=== PATIENT | male | born 1965 | race African-American/Black ===

== ENCOUNTER 2018-06-05 17:36 | Emergency (ER) | payer MEDICAID ==
[~2018-06-05 17:36] MED LIST: ACET-2031 PO; AMO500 PO; ASP325 PO; AZIT-1 PO; BACDS PO; CALC-488 PO; CEPH-13 PO; CIP500 PO; CLA500 PO; CYC10 PO; CYCL-343 PO; CYCL10TA29 PO; DIA5 PO; DOC100 PO; DON PO; HYDR-2966 PO; HYDR-3072 PO; HYDR-3503 PO; HYDR-4305 PO; HYDR-4309 PO; IBUP-1618 PO; KET10 PO; LEVO-85 PO; LISI-362 PO; LOR5 PO; LOR5/325 PO; MAG-66 PO; METH4TAB66 PO; METR-1 PO; NIC21T TD; OMEP-153 PO; OXYB-13 PO; OXYC-689 PO; OXYC-865 PO; PAN40 PO; PER PO; PRED-1 PO; PRED20TA6 PO; SERT-1 PO; SERT-173 PO; SUC1 PO; SULF-198 PO; TETR-30 PO; TRA50 PO; TRAM-420 PO; TRAZ-133 PO; TRAZADONE; ZOLOFT; [UNRECOGNIZED DRUG - CODE] PO; [UNRECOGNIZED DRUG - REMARK]
[2018-06-05] MEDS ORDERED: fentaNYL CITR 100 MCG/2 ML AMP IVP ONE ×2 (18:05→19:35)
[2018-06-05 18:17] LABS: PLATELET COUNT, AUTOMATED 338 K/uL (150-450)
--- NOTE | 2018-06-05 18:29 | ER Report ---
History and Physical Time Seen By MD: 17:55 Hx. of Stated Complaint: FULL ABD PAIN THAT RADIATES TO MY BACK HPI/ROS Source of History: The Patient Chief Concern: abdominal pain History of Present Illnesses: 53-year-old male presents to the Emergency Department with complaints of abdominal pain that radiates into his back on both sides. The pain started Monday and is currently rated a 10 out of 10 on pain scale. States, "it is like someone kicked you in the testicles but the pain doesn't go away." Associated symptoms of chills and nausea that also started Monday. Reports being sexually active and using condoms 100% of the time. Pain worse with deep inhalation, sitting or standing. Denies treatments tried. ROS: Constitutional: Denies recent illness, reports chills. HEENT: Denies headache. No sore throat. Cardiovascular: Denies chest pain, palpitations, or diaphoresis. Respiratory: Denies shortness of breath, denies cough or wheezing. Gastrointestinal System: Reports nausea, denies vomiting, denies diarrhea or constipation, denies hematochezia, generalized abdominal pain. Genitourinary: Reports lower back pain, denies hematuria, denies painful voiding. Musculoskeletal: Denies muscular pain, no joint pain. Allergies: Coded Allergies: morphine (Verified Allergy, Intermediate, ITCHING, 06/27/16) Home Meds Active Scripts Hydrocodone Bit/Acetaminophen (HYDROCODON-ACETAMINOPHEN 5-325) 1 Each Tablet, 1 EACH PO Q6 Y for PAIN for 3 Days, #12 TAB Prov:MELVI LÓPEZ RETAIL SHIFT SUPERVISOR 06/05/18 Dicyclomine Hcl (BENTYL) 10 Mg/1 Ml Ampul, 20 MG IM QID for 7 Days, #28 TAB Prov:MELVI LÓPEZ RETAIL SHIFT SUPERVISOR 06/05/18 Oxycodone Hcl/Acetaminophen (PERCOCET 5-325 MG TABLET) 1 Each Tablet, 1 EACH PO Q4H Y for PAIN, #12 Prov:ZACHARY GREGORY DO 03/20/17 Levofloxacin 500 Mg Tab (LEVAQUIN 500 MG TAB) 500 Mg Tablet, 500 MG PO DAILY for infection, #6 TAB Prov:ZACHARY GREGORY DO 03/20/17 Oxycodone/Acetaminophen (OXYCODONE/ACETAMINOPHEN 5MG/325 MG) 5 Mg/325 Mg Tab, 1- 2 TAB PO Q6H, #14 TAB Prov:WENDY ARREDONDO [employer]O PARTS SALESPERSON 06/27/16 Cephalexin (KEFLEX) 500 Mg Capsule, 500 MG PO TID, #30 CAP TAKE ONE CAPSULE BY MOUTH EVERY 3 TIMES A DAY. Prov:WENDY ARREDONDO [employer] SALESPERSON 06/27/16 Sulfamethoxazole/Trimet 800-160 Mg Tab (BACTRIM DS TABLET) 1 Each Tablet, 2 TAB PO Q12H, #40 TAB Prov:WENDY ARREDONDO [employer] SALESPERSON 06/27/16 Past Medical/Surgical History MS diagnosed 5 years ago Hx Smoking: Yes (1/2 PPD) Smoking Status: Current: Every Day Smoker Exposure to Second Hand Smoke?: Yes Hx Substance Use Disorder: No Hx Alcohol Use: No Constitutional Vital Sign - Last 24 Hours 06/05/18 06/05/18 06/05/18 06/05/18 17:41 17:42 17:51 18:06 Temp 98.6 Pulse 100 96 95 Resp 18 B/P (MAP) 149/114 (126) 149/114 Pulse Ox 95 96 91 O2 Delivery Room Air 06/05/18 06/05/18 06/05/18 06/05/18 18:21 18:36 18:41 19:20 Pulse 101 91 89 95 Resp 24 B/P (MAP) 158/100 (119) Pulse Ox 90 88 89 96 06/05/18 06/05/18 06/05/18 06/05/18 19:30 19:34 19:41 20:00 Pulse 89 83 Resp 22 18 B/P (MAP) 174/124 (141) 152/97 (115) Pulse Ox 97 98 O2 Delivery Nasal Cannula Nasal Cannula O2 Flow Rate 2.0 2 2 06/05/18 06/05/18 06/05/18 06/05/18 20:05 20:20 20:30 20:35 Pulse 89 87 88 B/P (MAP) 160/93 (115) Pulse Ox 97 98 100 O2 Delivery Room Air Room Air Room Air 06/05/18 06/05/18 06/05/18 06/05/18 20:50 21:00 21:05 21:20 Pulse 90 85 82 B/P (MAP) 154/98 (116) Pulse Ox 99 99 99 O2 Delivery Room Air Room Air Room Air 06/05/18 06/05/18 21:30 21:35 Pulse 80 B/P (MAP) 141/98 (112) Pulse Ox 99 O2 Delivery Room Air Intake and Output 06/05/18 06/05/18 06/06/18 15:00 23:00 07:00 Intake Total 1000 ml Output Total 400 ml Balance 600 ml Physical Exam Constitutional: 53-year-old male in moderate distress. HEENT: Normocephalic and atraumatic. Non-injected. No exudates. PERRLA. Lymph nodes- cervical chain, pre-and post-auricular, occipital, mandibular, and submental lymph nodes non-tender and non-palpable. Cardiovascular: 2+ radial pulses BL equal. PMI - left midclavicular at the 5th ICS. Aortic, pulmonic, tricuspid, and mitral areas - clear S1/S2; no murmur, no S3, or S4. Respiratory: Respiratory Excursion BL equal and symmetrical; no presence of lag ; quiet, rhythmic and effortless. No retractions. BL clear and equal. GI: nondistended, normoactive BS, guarding, tender, CVA tenderness bilaterally : testicles without swelling or pain on palpation Musculoskeletal: moves all extremities Differential Diagnoses: kidney stone, UTI, STI, pyelonephritis, pancreatitis Medical Decision Making Data Points Result Diagram: 06/05/18 1745 06/05/18 1745 Laboratory Hematology Test 06/05/18 17:45 06/05/18 20:54 Red Blood Count 4.89 M/uL (4.00-5.60) Mean Corpuscular Volume 96.6 fL (80.0-96.0) Mean Corpuscular Hemoglobin 33.8 pg (26.0-33.0) Mean Corpuscular Hemoglobin Concent 35.0 g/dL (32.0-36.0) Red Cell Distribution Width 13.5 % (11.5-14.5) Mean Platelet Volume 7.8 fL (7.2-11.1) Neutrophils (%) (Auto) 53.6 % (39.4-72.5) Lymphocytes (%) (Auto) 35.3 % (17.6-49.6) Monocytes (%) (Auto) 7.8 % (4.1-12.4) Eosinophils (%) (Auto) 1.4 % (0.4-6.7) Basophils (%) (Auto) 1.9 % (0.3-1.4) Nucleated RBC Relative Count (auto) 0.1 /100WBC Neutrophils # (Auto) 3.7 K/uL (2.0-7.4) Lymphocytes # (Auto) 2.4 K/uL (1.3-3.6) Monocytes # (Auto) 0.5 K/uL (0.3-1.0) Eosinophils # (Auto) 0.1 K/uL (0.0-0.5) Basophils # (Auto) 0.1 K/uL (0.0-0.1) Nucleated RBC Absolute Count (auto) 0.01 K/uL Sodium Level 140 mmol/L (137-145) Potassium Level 3.3 mmol/L (3.5-5.0) Chloride Level 103 mmol/L (98-107) Carbon Dioxide Level 26 mmol/L (22-30) Blood Urea Nitrogen 12 mg/dl (9-21) Creatinine 1.00 mg/dl (0.66-1.25) Glomerular Filtration Rate Calc > 60.0 Random Glucose 119 mg/dl (75-110) Calcium Level 8.8 mg/dl (8.4-10.2) Total Bilirubin 0.5 mg/dl (0.2-1.3) Aspartate Amino Transf (AST/SGOT) 28 U/L (0-35) Alanine Aminotransferase (ALT/SGPT) 16 U/L (0-56) Alkaline Phosphatase 116 U/L (0-126) Total Protein 7.3 g/dl (6.3-8.2) Albumin 4.3 g/dl (3.5-5.0) Urine Color Yellow Urine Clarity Clear Urine pH 5.0 pH (4.8-9.5) Urine Specific [place] 1.054 Urine Protein Negative mg/dL (NEGATIVE) Urine Glucose (UA) Negative mg/dL (NEGATIVE) Urine Ketones Negative mg/dL (NEGATIVE) Urine Blood Negative (NEGATIVE) Urine Nitrite Negative (NEGATIVE) Urine Bilirubin Negative (NEGATIVE) Urine Urobilinogen 4.0 mg/dL (0.2-1.9) Urine Leukocyte Esterase Negative (NEGATIVE) Urine RBC 1 /HPF (0-2/HPF) Urine WBC 1 /HPF (0-5/HPF) Urine Squamous Epithelial Cells Moderate /LPF (</=FEW) Urine Bacteria Negative /HPF (NONE-FEW) Urine Mucus Few /HPF (NONE-FEW) Chemistry Test 06/05/18 17:45 06/05/18 20:54 White Blood Count 6.9 k/uL (4.5-11.0) Red Blood Count 4.89 M/uL (4.00-5.60) Hemoglobin 16.5 g/dL (14.0-18.0) Hematocrit 47.2 % (42.0-52.0) Mean Corpuscular Volume 96.6 fL (80.0-96.0) Mean Corpuscular Hemoglobin 33.8 pg (26.0-33.0) Mean Corpuscular Hemoglobin Concent 35.0 g/dL (32.0-36.0) Red Cell Distribution Width 13.5 % (11.5-14.5) Platelet Count 338 K/uL (150-450) Mean Platelet Volume 7.8 fL (7.2-11.1) Neutrophils (%) (Auto) 53.6 % (39.4-72.5) Lymphocytes (%) (Auto) 35.3 % (17.6-49.6) Monocytes (%) (Auto) 7.8 % (4.1-12.4) Eosinophils (%) (Auto) 1.4 % (0.4-6.7) Basophils (%) (Auto) 1.9 % (0.3-1.4) Nucleated RBC Relative Count (auto) 0.1 /100WBC Neutrophils # (Auto) 3.7 K/uL (2.0-7.4) Lymphocytes # (Auto) 2.4 K/uL (1.3-3.6) Monocytes # (Auto) 0.5 K/uL (0.3-1.0) Eosinophils # (Auto) 0.1 K/uL (0.0-0.5) Basophils # (Auto) 0.1 K/uL (0.0-0.1) Nucleated RBC Absolute Count (auto) 0.01 K/uL Glomerular Filtration Rate Calc > 60.0 Calcium Level 8.8 mg/dl (8.4-10.2) Total Bilirubin 0.5 mg/dl (0.2-1.3) Aspartate Amino Transf (AST/SGOT) 28 U/L (0-35) Alanine Aminotransferase (ALT/SGPT) 16 U/L (0-56) Alkaline Phosphatase 116 U/L (0-126) Total Protein 7.3 g/dl (6.3-8.2) Albumin 4.3 g/dl (3.5-5.0) Urine Color Yellow Urine Clarity Clear Urine pH 5.0 pH (4.8-9.5) Urine Specific [place] 1.054 Urine Protein Negative mg/dL (NEGATIVE) Urine Glucose (UA) Negative mg/dL (NEGATIVE) Urine Ketones Negative mg/dL (NEGATIVE) Urine Blood Negative (NEGATIVE) Urine Nitrite Negative (NEGATIVE) Urine Bilirubin Negative (NEGATIVE) Urine Urobilinogen 4.0 mg/dL (0.2-1.9) Urine Leukocyte Esterase Negative (NEGATIVE) Urine RBC 1 /HPF (0-2/HPF) Urine WBC 1 /HPF (0-5/HPF) Urine Squamous Epithelial Cells Moderate /LPF (</=FEW) Urine Bacteria Negative /HPF (NONE-FEW) Urine Mucus Few /HPF (NONE-FEW) Urinalysis Test 06/05/18 20:54 Urine Color Yellow Urine Clarity Clear Urine pH 5.0 pH (4.8-9.5) Urine Specific [place] 1.054 Urine Protein Negative mg/dL (NEGATIVE) Urine Glucose (UA) Negative mg/dL (NEGATIVE) Urine Ketones Negative mg/dL (NEGATIVE) Urine Blood Negative (NEGATIVE) Urine Nitrite Negative (NEGATIVE) Urine Bilirubin Negative (NEGATIVE) Urine Urobilinogen 4.0 mg/dL (0.2-1.9) Urine Leukocyte Esterase Negative (NEGATIVE) Urine RBC 1 /HPF (0-2/HPF) Urine WBC 1 /HPF (0-5/HPF) Urine Squamous Epithelial Cells Moderate /LPF (</=FEW) Urine Bacteria Negative /HPF (NONE-FEW) Urine Mucus Few /HPF (NONE-FEW) EKG/Imaging Imaging COMPUTED TOMOGRAPHY OF THE Abdomen and Pelvis with CONTRAST INDICATION: Abdominal pain. TECHNIQUE: Contiguous axial 3.[address] images were obtained through the abdomen and pelvis after 75 cc Isovue-370. Coronal and sagittal reformatted images were submitted. COMPARISON: CT November 22, 2009 could not be retrieved from archive. FINDINGS: Lung bases: Mild atelectasis at the lung bases. Liver and hepatic vasculature: 2 cm cyst in the right lobe of the liver on series 2 image 20. Additional subcentimeter hypodensities are too small to characterize but are probably also cysts. Hepatic and portal veins are appropriately opacified. Gallbladder and bile ducts: Normal Spleen: Normal Pancreas: Normal Adrenals: Normal Kidneys, ureters and bladder: No hydronephrosis or collecting system obstruction. Retroperitoneum and aorta: Normal caliber aorta. No adenopathy. Mild aortic atherosclerosis. GI tract, mesentery and peritoneum: There are no findings of appendicitis. No bowel obstruction. No free fluid or free air. A few small bowel loops in the midabdomen are fluid-filled but are not frankly distended. Nodular density in the left hemiabdomen measuring 2 cm adjacent to the stomach is presumably a lymph node. Prostate: Borderline enlargement. Bones and soft tissues: No acute osseous abnormality. IMPRESSION: 1. A few small bowel loops in the midabdomen are fluid-filled, a nonspecific or even incidental finding. 2. Nodular soft tissue density measuring 2 cm adjacent to the stomach in the left upper quadrant likely represents a conglomerate of lymph nodes 3. Otherwise unremarkable. One of the following dose optimization techniques was utilized in the performance of this exam: Automated exposure control; adjustment of the mA and/ or kV according to the patient's size; or use of an iterative reconstruction technique. Specific details can be referenced in the facility's radiology CT exam operational policy. Report Dictated By: Clarisa Roldan MD at 06/05/2018 7:37 PM Report E-Signed By: Clarisa Roldan MD at 06/05/2018 7:45 PM ED Course/Re-evaluation ED Course 53-year-old male presents to the emergency department with abdominal pain that radiates to his back bilaterally. History and physical examination obtained. Differential diagnoses considered and shared with the patient. CBC, CMP, UA, gonorrhea screening, chlamydia screening, and CT of the abdomen obtained. although we have ruled out infection, pancreatitis, appendicitis, kidney stones , UTI, pyelonephritis, and STI (gonorrhea and chlamydia), the etiology of the the patient's pain has yet to be discovered. He remains stable and without acute findings, at this time, we will treat the patient's symptoms of pain with ibuprofen, bentyl, and hydrocodone. The patient has been instructed to follow up with his primary care provider within three days for further evaluation. Decision to Disposition Date: Jun 05, 2018 Decision to Disposition Time: 21:24 Depart Departure Latest Vital Signs Vital Signs Date Time Temp Pulse Resp B/P (MAP) Pulse Ox O2 Delivery O2 Flow Rate FiO2 06/05/18 21:35 80 99 Room Air 06/05/18 21:30 141/98 (112) 06/05/18 20:00 18 2 06/05/18 17:42 98.6 Impression: Primary Impression: Abdominal pain Condition: Improved Disposition: HOME OR SELF-CARE New Scripts Hydrocodone Bit/Acetaminophen (HYDROCODON-ACETAMINOPHEN 5-325) 1 Each Tablet 1 EACH PO Q6 Y for PAIN for 3 Days, #12 TAB Prov: MELVI LÓPEZ 06/05/18 Dicyclomine Hcl (BENTYL) 10 Mg/1 Ml Ampul 20 MG IM QID for 7 Days, #28 TAB Prov: MELVI LÓPEZ 06/05/18 Patient Instructions: Abdominal Pain (ED) Additional Instructions: Take ibuprofen and bentyl for pain. Take hydrocodone for severe pain. Follow up with your primary care provider within the next three days. Return to the emergency department if your condition worsens. Problem Qualifiers Primary Impression: Abdominal pain Abdominal location: generalized Qualified Codes: R10.84 - Generalized abdominal pain MELVI LÓPEZ Jun 05, 2018 18:28
[2018-06-05] MEDS ORDERED: IOPAMIDOL 76% 100 ML INFUS BTL 100 ML ONE (19:01)
--- NOTE | 2018-06-05 19:49 | RADIOLOGY IMAGING REPORT ---
FACILITY: [facility] PATIENT NAME: Karthikeyan Li : 1965 MR: [id number] V: [id number] EXAM DATE: ORDERING PHYSICIAN: MELVI LÓPEZ TECHNOLOGIST: [place] [facility] [place] Karthikeyan Li : 1965 Visit/Account:[id number] Date of Sevice: 06/05/2018 COMPUTED TOMOGRAPHY OF THE Abdomen and Pelvis with CONTRAST INDICATION: Abdominal pain. TECHNIQUE: Contiguous axial 3.[address] images were obtained through the abdomen and pelvis after 75 c c Isovue-370. Coronal and sagittal reformatted images were submitted. COMPARISON: CT November 22, 2009 could not be retrieved from archive. FINDINGS: Lung bases: Mild atelectasis at the lung bases. Liver and hepatic vasculature: 2 cm cyst in the right lobe of the liver on series 2 image 20. Additi onal subcentimeter hypodensities are too small to characterize but are probably also cysts. Hepatic a nd portal veins are appropriately opacified. Gallbladder and bile ducts: Normal Spleen: Normal Pancreas: Normal Adrenals: Normal Kidneys, ureters and bladder: No hydronephrosis or collecting system obstruction. Retroperitoneum and aorta: Normal caliber aorta. No adenopathy. Mild aortic atherosclerosis. GI tract, mesentery and peritoneum: There are no findings of appendicitis. No bowel obstruction. No f ree fluid or free air. A few small bowel loops in the midabdomen are fluid-filled but are not frankly distended. Nodular density in the left hemiabdomen measuring 2 cm adjacent to the stomach is presuma quyen a lymph node. Prostate: Borderline enlargement. Bones and soft tissues: No acute osseous abnormality. IMPRESSION: 1. A few small bowel loops in the midabdomen are fluid-filled, a nonspecific or even incidental findi ng. 2. Nodular soft tissue density measuring 2 cm adjacent to the stomach in the left upper quadrant like ly represents a conglomerate of lymph nodes 3. Otherwise unremarkable. One of the following dose optimization techniques was utilized in the performance of this exam: Autom ated exposure control; adjustment of the mA and/or kV according to the patient's size; or use of an i terative reconstruction technique. Specific details can be referenced in the facility's radiology C T exam operational policy. Report Dictated By: Clarisa Roldan MD at 06/05/2018 7:37 PM Report E-Signed By: Clarisa Roldan MD at 06/05/2018 7:45 PM WSN:[id number]
[2018-06-05] MEDS ORDERED: NS(*) 0.9% 1000 ML BAG 1,000 ML IV ONE (20:35)
[2018-06-05] MEDS ORDERED: HYDR-385 PO (21:28)
[2018-06-05] MEDS ORDERED: DICY10AM2 IM (21:28)
[2018-06-05 21:30] VITALS: BP 141/98
[2018-06-05] MEDS ORDERED: ACET/HYDROC 5/325MG TH ER ONLY 2 TAB/BOTTLE PO ONE (21:30)
== END 2018-06-05 22:04 | disposition home or self-care (01) ==
LOC: ER 18:02
DX: R10.9 Unspecified abdominal pain (principal)
CPT/HCPCS: 74177; 81001; 85025; 87491; 87591; 96361; 96374; 99284; J3010; J7030; Q9967; 82040; 82247; 82310; 82374; 82435; 82565; 82947; 84075; 84132; 84155; 84295; 84450; 84460; 84520

== ENCOUNTER 2019-03-20 17:43 | Emergency (ER) | payer MEDICAID ==
[~2019-03-20 17:43] MED LIST changes: +DICY10AM2 IM; +HYDR-385 PO; -HYDR-4305 PO; -HYDR-4309 PO; +HYDR-627 PO; +HYDR-653 PO
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
[2019-03-20] MEDS ORDERED: HYDROMORPHONE HCL 1 MG/ML SYRINGE IVP ONE (18:05)
[2019-03-20] MEDS ORDERED: ONDANSETRON 4 MG/2 ML VIAL IVP ONE (18:05)
[2019-03-20] MEDS ORDERED: methylPREDNIS SUC* 1000 MG/8ML 1,000 MG in NS(*) 0.9% 250 ML BAG 250 ML IVPB ONE (18:05)
[2019-03-20] MEDS ORDERED: PRED20TA6 PO (18:20)
[2019-03-20] MEDS ORDERED: OXYC5TAB38 PO (18:20)
[2019-03-20 19:32] VITALS: BP 150/108
== END 2019-03-20 19:40 | disposition home or self-care (01) ==
LOC: ER 18:08
DX: G35 Multiple sclerosis (principal)
CPT/HCPCS: 96365; 96375; 99284; J1170; J2405; J2930; J7050

== ENCOUNTER 2019-05-04 18:50 | Observation (INO) | payer MEDICAID ==
[~2019-05-04] VITALS: Ht 170.2 cm; Wt 62.1 kg
[~2019-05-04 18:50] MED LIST changes: -CALC-488 PO; +CALC-743 PO; +OXYC5TAB38 PO
--- NOTE | 2019-05-04 19:09 | ER Report ---
History and Physical Time Seen By MD: 18:56 Hx. of Stated Complaint: PATIENT STATES HE STARTED HAVING REALLY BAD ABDOMINAL PAIN THAT STARTED 4HOURS AGO, WITH NAUSEA AND VOMITING. (JERRELL BARBA) HPI/ROS CHIEF COMPLAINT: Abdominal pain HISTORY OF PRESENT ILLNESS: This is a 54-year-old male who presents to the emergency department for abdominal pain. Patient states about 4 hours prior to arrival he had severe epigastric discomfort, some nausea and vomiting, no diarrhea. No abdominal surgeries, this is their happen before, he states he was just sitting when the pain developed. He is sitting on the edge of the gurney, moaning and groaning rocking [id number]. No recent fevers or chills. Denies chest pain or shortness of breath. No dysuria. Patient also states that he has not had a bowel movement since yesterday typically he has a bowel movement once or twice a day. Denies alcohol consumption tonight however he states he has maybe 1 shot every night or every other night. REVIEW OF SYSTEMS: Constitutional: No fever, no chills. Eyes: No discharge. ENT: No sore throat. Cardiovascular: No chest pain, no palpitations. Respiratory: No cough, no shortness of breath. Gastrointestinal: As above. Genitourinary: No hematuria. Musculoskeletal: No back pain. Skin: No rashes. Neurological: No headache. (JERRELL BARBA) Allergies: Coded Allergies: morphine (Verified Allergy, Intermediate, ITCHING, 05/04/19) Home Meds Discontinued Scripts Oxycodone Hcl (OXYCODONE HCL) 5 Mg Tablet, 5 MG PO Q6H PRN for PAIN, #12 Prov:ZACHARY FORBES DO 03/20/19 Prednisone (PREDNISONE) 20 Mg Tablet, 40 MG PO QDAY for MS, #21 Take 2 tablets once daily for the next 2 weeks, then decrease to 1 tablet for one week Prov:COLTZACHARY Timmons DO 03/20/19 Past Medical/Surgical History Patient has a past medical and surgical history of multiple sclerosis, hypertension, pneumonia, ulcers, burgess, skin grafts, chronic alcohol use. (JERRELL BARBA) Reviewed Nurses Notes: Yes (JERRELL BARBA) Hx Smoking: Yes (1/2 PPD) Smoking Status: Current: Every Day Smoker Exposure to Second Hand Smoke?: Yes Hx Substance Use Disorder: No Hx Alcohol Use: No (JERRELL BARBA [employer]) Constitutional Vital Sign - Last 24 Hours 05/04/19 05/04/19 05/04/19 05/04/19 18:59 19:05 19:20 19:30 Temp 97.6 Pulse 98 92 92 Resp 24 B/P (MAP) 162/121 170/128 (142) Pulse Ox 95 93 97 O2 Delivery Room Air 05/04/19 05/04/19 05/04/19 05/04/19 19:35 19:40 19:40 19:55 Pulse 86 79 89 Pulse Ox 98 79 93 O2 Flow Rate 3.0 05/04/19 05/04/19 05/04/19 05/04/19 20:00 20:10 20:25 20:30 Pulse 91 93 B/P (MAP) 173/120 (137) 162/120 (134) Pulse Ox 95 96 05/04/19 05/04/19 05/04/19 05/04/19 20:40 20:55 21:00 21:15 Pulse ??? 103 93 93 B/P (MAP) 144/113 (123) Pulse Ox 84 95 100 100 05/04/19 05/04/19 05/04/19 05/04/19 21:30 21:45 22:00 22:20 Pulse 93 92 91 93 B/P (MAP) 146/99 (115) 140/97 (111) Pulse Ox 90 92 92 95 05/04/19 05/04/19 05/04/19 05/04/19 22:30 22:33 22:35 22:40 Temp 98.3 Pulse 86 94 96 B/P (MAP) 143/113 (123) 143/113 (123) Pulse Ox 95 95 94 O2 Delivery Nasal Cannula O2 Flow Rate 1.0 05/04/19 05/04/19 05/04/19 05/04/19 22:45 22:50 22:55 23:00 Pulse ??? 94 95 ??? B/P (MAP) 171/135 (147) Pulse Ox 94 98 100 05/04/19 23:05 Pulse 94 Pulse Ox 100 (ZACHARY FORBES DO) Physical Exam General Appearance: The patient is alert, has no immediate need for airway protection and no signs of toxicity. Anxious, sitting up on the side of the gurney, rocking back and forth. Eyes: Pupils equal and round no pallor or injection. ENT, Mouth: Mucous membranes are dry. Respiratory: There are no retractions, lungs are clear to auscultation. Cardiovascular: Regular rate and rhythm. No murmurs, clicks or rubs. Gastrointestinal: Abdomen is soft mildly rounded, pain to the epigastrium, no masses, normoactive bowel sounds. No abdominal bruits. Neurological: Alert and oriented 4. Moving all extremities. Following all commands. No focal neuro deficits. Skin: Warm and dry, no rashes. Musculoskeletal: Neck is supple non tender. Extremities are nontender, nonswollen and have full range of motion. DIFFERENTIAL DIAGNOSIS: After history and physical exam differential diagnosis was considered for abdominal pain including but not limited to appendicitis, cholecystitis, constipation, bowel obstruction, perforated ulcer, alcoholic gastritis, gastritis and urinary tract infection. (JERRELL BARBA [facility]) Medical Decision Making Data Points Result Diagram: 05/05/1952605/05/19526 Laboratory Hematology Test 05/04/19 17:27 05/04/19 19:29 05/04/19 22:44 Lactate 1.5 mmol/L (0.7-2.1) C-Reactive Protein 0.7 mg/dl (<1.0) Lipase 67 U/L (23-300) Serum Alcohol < 10 mg/dl Urine Color Yellow Urine Clarity Clear Urine pH 6.0 pH (4.8-9.5) Urine Specific [place] >1.060 Urine Protein Negative mg/dL (NEGATIVE) Urine Glucose (UA) Negative mg/dL (NEGATIVE) Urine Ketones Negative mg/dL (NEGATIVE) Urine Blood Negative (NEGATIVE) Urine Nitrite Negative (NEGATIVE) Urine Bilirubin Negative (NEGATIVE) Urine Urobilinogen 4.0 mg/dL (0.2-1.9) Urine Leukocyte Esterase Negative (NEGATIVE) Urine RBC 2 /HPF (0-2/HPF) Urine WBC 1 /HPF (0-5/HPF) Urine Squamous Epithelial Cells Many /LPF (</=FEW) Urine Bacteria Negative /HPF (NONE-FEW) Urine Mucus None /HPF (NONE-FEW) Chemistry Test 05/04/19 17:27 05/04/19 19:29 05/04/19 22:44 Lactate 1.5 mmol/L (0.7-2.1) C-Reactive Protein 0.7 mg/dl (<1.0) Lipase 67 U/L (23-300) Serum Alcohol < 10 mg/dl Urine Color Yellow Urine Clarity Clear Urine pH 6.0 pH (4.8-9.5) Urine Specific [place] >1.060 Urine Protein Negative mg/dL (NEGATIVE) Urine Glucose (UA) Negative mg/dL (NEGATIVE) Urine Ketones Negative mg/dL (NEGATIVE) Urine Blood Negative (NEGATIVE) Urine Nitrite Negative (NEGATIVE) Urine Bilirubin Negative (NEGATIVE) Urine Urobilinogen 4.0 mg/dL (0.2-1.9) Urine Leukocyte Esterase Negative (NEGATIVE) Urine RBC 2 /HPF (0-2/HPF) Urine WBC 1 /HPF (0-5/HPF) Urine Squamous Epithelial Cells Many /LPF (</=FEW) Urine Bacteria Negative /HPF (NONE-FEW) Urine Mucus None /HPF (NONE-FEW) Toxicology Test 05/04/19 19:29 Serum Alcohol < 10 mg/dl Urinalysis Test 05/04/19 22:44 Urine Color Yellow Urine Clarity Clear Urine pH 6.0 pH (4.8-9.5) Urine Specific [place] >1.060 Urine Protein Negative mg/dL (NEGATIVE) Urine Glucose (UA) Negative mg/dL (NEGATIVE) Urine Ketones Negative mg/dL (NEGATIVE) Urine Blood Negative (NEGATIVE) Urine Nitrite Negative (NEGATIVE) Urine Bilirubin Negative (NEGATIVE) Urine Urobilinogen 4.0 mg/dL (0.2-1.9) Urine Leukocyte Esterase Negative (NEGATIVE) Urine RBC 2 /HPF (0-2/HPF) Urine WBC 1 /HPF (0-5/HPF) Urine Squamous Epithelial Cells Many /LPF (</=FEW) Urine Bacteria Negative /HPF (NONE-FEW) Urine Mucus None /HPF (NONE-FEW) (ZACHARY FORBES DO) EKG/Imaging Imaging PATIENT NAME: Karthikeyan Li : 1965 MR: [id number] V: [id number] EXAM DATE: ORDERING PHYSICIAN: JERRELL BARBA TECHNOLOGIST: [place] [facility] [place]: Karthikeyan Li : 1965 Visit/Account:[id number] Date of : 05/04/2019 COMPUTED TOMOGRAPHY OF THE Abdomen and Pelvis with CONTRAST INDICATION: Abdominal pain. TECHNIQUE: Contiguous axial 3.[address] images were obtained through the abdomen and pelvis after 75 cc of Isovue-370. Coronal and sagittal reformatted images w ere submitted. COMPARISON: CT June 05, 2018. FINDINGS: Lung bases: Mild atelectasis at the lung bases. Liver and hepatic vasculature: Simple appearing cyst posteriorly in the right lobe. Subcentimeter hypodensities are too small to characterize. Gallbladder and bile ducts: There is gallbladder wall thickening. No stones are identified. The gallbladder is mildly distended. Spleen: Normal Pancreas: Normal Adrenals: Normal Kidneys, ureters and bladder: Symmetric enhancement. No hydronephrosis or obstruction. Retroperitoneum and aorta: Normal caliber aorta. Mild atherosclerosis. GI tract, mesentery and peritoneum: No bowel obstruction. No free fluid or free air. The stomach is mildly distended. No findings of diverticulitis or appendicitis. There is an approximately 2 cm nodule/nodular density at the left margin of the stomach on image 42 of series 2. This is not appreciably changed since the comparison of May,. Prostate: Measures approximately 4.7 cm diameter. Bones and soft tissues: No acute osseous abnormality. IMPRESSION: 1. Gallbladder wall thickening is suggested, and the gallbladder is distended. There are no radiopaque stones. Consider abdominal ultrasound of the right upper quadrant. 2. A 2 cm soft tissue nodule at the lateral margin of the stomach remains indeterminate but has not increased in size since May,. It could be a c onglomerate of lymph nodes or fibrotic tissue. A neoplastic etiology cannot be entirely excluded. Recommend attention on follow-up imaging. One of the following dose optimization techniques was utilized in the performance of this exam: Automated exposure control; adjustment of the mA and/or kV according to the patient's size; or use of an iterative reconstruction technique. Specific details can be referenced in the facility's radiology CT exam operational policy. Report Dictated By: Clarisa Roldan MD at 05/04/2019 8:17 PM Report E-Signed By: Clarisa Roldan MD at 05/04/2019 8:42 PM WSN:[id number] (JERRELL BARBA [employer]) Imaging Results: Ultrasound of the right upper quadrant ultrasound was obtained. The results of the study are EXAMINATION: LIMITED ABDOMINAL ULTRASOUND DATE: 05/04/2019 8:51 PM INDICATION: Epigastric pain, CT showing gallbladder wall thickening. TECHNIQUE: Wolf scale, color and pulsed Doppler ultrasound images of the right upper quadrant were obtained. COMPARISON: Same-day CT abdomen and pelvis. FINDINGS: Pancreas: The pancreas is suboptimally visualized in the tail. There is no significant abnormality in the visualized portion, , and the tail is unremarkable on prior CT. Aorta and IVC: The imaged abdominal aorta and IVC are patent. Liver: The liver shows normal shape, parenchymal echogenicity and echotexture. The right hepatic lobe measures 11.3 cm craniocaudal, which is within normal limits. Simple appearing cyst in segment [address] finding, measuring 2.7 x 1.2 x 1.9 cm. The main portal vein is patent with hepatopedal flow. Bile ducts: The intrahepatic bile ducts are not dilated. The common bile duct measures 3 mm in diameter, which is normal. Gallbladder: The gall bladder is partially distended. It is thick-walled, and the wall appears edematous end hyperemic. There are posteriorly shadowing calculi within the gallbladder lumen. Reported sonographic Julien's sign. Kidney: The right kidney measures 9.9 x 4.1 x 5.3 cm. The parenchymal echogen icity and thickness appear within normal range. No focal lesion is demonstrated. No hydronephrosis. No ascites. IMPRESSION: 1. Cholelithiasis with findings suspicious for cholecystitis. 2. Simple 2.7 cm hepatic cyst. The study was read by the radiologist. I viewed the images myself on the PACS system. (ZACHARY FORBES DO) ED Course/Re-evaluation Clinical Indication for ER IV: Hydration, IV Access ED Course The patient was admitted to room. A history and physical obtained. Differential diagnoses were considered. An IV was started. A CBC, CMP, lipase were obtained. A 1 L normal saline bolus was given. 4 mg IV Zofran, 0.5 mg IV Dilaudid followed by an additional 1 mg IV Dilaudid. The CT of the abdomen and pelvis showing thickened wall of the gallbladder, recommended an ultrasound.MCV 96.8, chemistry showing potassium 3.3, AST 155, ALT 86. A gallbladder ultrasound has been ordered. Patient resting more comfortably after the medications. Turned Over The care of the patient was turned over to Dr. Forbes. TAMAR Shah I authorize my typed signature that I authenticated this report. [facility] ED Course 05/04/2019 11:01:25 pm case discussed with Dr. Charles Tyler, general surgery on- call, who accepts the patient for admission. Holding orders were written. Decision to Disposition Date: May 04, 2019 Decision to Disposition Time: 23:03 (ZACHARY FORBES DO) Depart Departure Latest Vital Signs Vital Signs Date Time Temp Pulse Resp B/P (MAP) Pulse Ox O2 Delivery O2 Flow Rate FiO2 05/04/19 23:05 94 100 05/04/19 23:00 171/135 (147) 05/04/19 22:33 98.3 Nasal Cannula 1.0 05/04/19 18:59 24 (ZACHARY FORBES DO) Impression: Primary Impression: Acute cholecystitis Additional Impression: Multiple sclerosis Condition: Improved Disposition: Admitted from ER New Scripts No Active Prescriptions or Reported Meds Problem Qualifiers JERRELL BARBA May 04, 2019 19:09 ZACHARY FORBES DO May 04, 2019 23:12
[2019-05-04] MEDS ORDERED: NS(*) 0.9% 1000 ML BAG 1,000 ML IV ONE ×2 (19:13→21:15)
[2019-05-04] MEDS ORDERED: ONDANSETRON 4 MG/2 ML VIAL IVP ONE (19:15)
[2019-05-04] MEDS ORDERED: HYDROMORPHONE HCL 1 MG/ML SYRINGE IVP ONE ×2 (19:15→19:40)
[2019-05-04 19:44] LABS: PLATELET COUNT, AUTOMATED 301 K/uL (150-450)
[2019-05-04] MEDS ORDERED: IOPAMIDOL 76% 100 ML INFUS BTL 100 ML ONE (19:49)
--- NOTE | 2019-05-04 20:47 | RADIOLOGY IMAGING REPORT ---
FACILITY: [facility] [place] PATIENT NAME: Karthikeyan Li : 1965 MR: [id number] V: [id number] EXAM DATE: ORDERING PHYSICIAN: JERRELL BARBA [place]CHN[place]: [place] [facility] [place] Karthikeyan Li : 1965 Visit/Account:[id number] Date of Sevice: 05/04/2019 COMPUTED TOMOGRAPHY OF THE Abdomen and Pelvis with CONTRAST INDICATION: Abdominal pain. TECHNIQUE: Contiguous axial 3.[address] images were obtained through the abdomen and pelvis after 75 c c of Isovue-370. Coronal and sagittal reformatted images were submitted. COMPARISON: CT June 05, 2018. FINDINGS: Lung bases: Mild atelectasis at the lung bases. Liver and hepatic vasculature: Simple appearing cyst posteriorly in the right lobe. Subcentimeter hy podensities are too small to characterize. Gallbladder and bile ducts: There is gallbladder wall thickening. No stones are identified. The gall bladder is mildly distended. Spleen: Normal Pancreas: Normal Adrenals: Normal Kidneys, ureters and bladder: Symmetric enhancement. No hydronephrosis or obstruction. Retroperitoneum and aorta: Normal caliber aorta. Mild atherosclerosis. GI tract, mesentery and peritoneum: No bowel obstruction. No free fluid or free air. The stomach is m ildly distended. No findings of diverticulitis or appendicitis. There is an approximately 2 cm nodule /nodular density at the left margin of the stomach on image 42 of series 2. This is not appreciably c hanged since the comparison of May,. Prostate: Measures approximately 4.7 cm diameter. Bones and soft tissues: No acute osseous abnormalit y. IMPRESSION: 1. Gallbladder wall thickening is suggested, and the gallbladder is distended. There are no radiopaqu e stones. Consider abdominal ultrasound of the right upper quadrant. 2. A 2 cm soft tissue nodule at the lateral margin of the stomach remains indeterminate but has not i ncreased in size since May,. It could be a conglomerate of lymph nodes or fibrotic tissue. A ne oplastic etiology cannot be entirely excluded. Recommend attention on follow-up imaging. One of the following dose optimization techniques was utilized in the performance of this exam: Autom ated exposure control; adjustment of the mA and/or kV according to the patient's size; or use of an i terative reconstruction technique. Specific details can be referenced in the facility's radiology C T exam operational policy. Report Dictated By: Clarisa Roldan MD at 05/04/2019 8:17 PM Report E-Signed By: Clarisa Roldan MD at 05/04/2019 8:42 PM WSN:[id number]
[2019-05-04 22:33] VITALS: BP 143/113
--- NOTE | 2019-05-04 22:55 | RADIOLOGY IMAGING REPORT ---
FACILITY: [facility] PATIENT NAME: Karthikeyan Li : 1965 MR: [id number] V: [id number] EXAM DATE: ORDERING PHYSICIAN: JERRELL BARBA TECHNOLOGIST: Location: [facility] Patient: Karthikeyan Li : 1965 Visit/Account:[id number] Date of Sevice: 05/04/2019 EXAMINATION: LIMITED ABDOMINAL ULTRASOUND DATE: 05/04/2019 8:51 PM INDICATION: Epigastric pain, CT showing gallbladder wall thickening. TECHNIQUE: Wolf scale, color and pulsed Doppler ultrasound images of the right upper quadrant were ob tained. COMPARISON: Same-day CT abdomen and pelvis. FINDINGS: Pancreas: The pancreas is suboptimally visualized in the tail. There is no significant abnormality in the visualized portion, , and the tail is unremarkable on prior CT. Aorta and IVC: The imaged abdominal aorta and IVC are patent. Liver: The liver shows normal shape, parenchymal echogenicity and echotexture. The right hepatic lobe measures 11.3 cm craniocaudal, which is within normal limits. Simple appearing cyst in segment [address] finding, measuring 2.7 x 1.2 x 1.9 cm. The main portal vein is patent with hepatope alem flow. Bile ducts: The intrahepatic bile ducts are not dilated. The common bile duct measures 3 mm in diamet er, which is normal. Gallbladder: The gall bladder is partially distended. It is thick-walled, and the wall appears edema tous end hyperemic. There are posteriorly shadowing calculi within the gallbladder lumen. Reported sonographic Julien's sign. Kidney: The right kidney measures 9.9 x 4.1 x 5.3 cm. The parenchymal echogenicity and thickness appe ar within normal range. No focal lesion is demonstrated. No hydronephrosis. No ascites. IMPRESSION: 1. Cholelithiasis with findings suspicious for cholecystitis. 2. Simple 2.7 cm hepatic cyst. Report Dictated By: Kal Botello MD at 05/04/2019 10:43 PM Report E-Signed By: Kal Botello MD at 05/04/2019 10:50 PM WSN:[id number]
[2019-05-04] MEDS ORDERED: PIPERACILLIN/TAZO*3.375GM VIAL 3.375 GM in NS(*) 0.9% 100 ML MINI-BAG 100 ML IVPB ONE (23:15)
[2019-05-05] VITALS (19 sets, daily range): BP systolic 120–164; BP diastolic 87–121; Ht 170.2 cm; Wt 62.1 kg
[2019-05-05] MEDS ORDERED: ONDANSETRON 4 MG/2 ML VIAL IVP PRN ×3 (01:20→11:05)
[2019-05-05] MEDS ORDERED: HYDROmorphone HCL 2 MG/ML SDV IVP PRN ×2 (01:20→06:30)
[2019-05-05] MEDS ORDERED: LR(*) 1000 ML BAG 1,000 ML VA PRN (04:50)
[2019-05-05] MEDS ORDERED: LR(*) 1000 ML BAG 1,000 ML IV PRN (05:10)
[2019-05-05] MEDS: PIPERACILLIN/TAZO*3.375GM VIAL 3.375 GM in NS(*) 0.9% 100 ML MINI-BAG 100 ML IVPB SCH ×2 (05:27→05:56)
[2019-05-05 05:45] LABS: PLATELET COUNT, AUTOMATED 263 K/uL (150-450)
[2019-05-05] MEDS ORDERED: PIPERACILLIN/TAZO*3.375GM VIAL 3.375 GM in NS(*) 0.9% 100 ML MINI-BAG 100 ML IVPB SCH ×3 (06:00→18:00)
[2019-05-05] MEDS ORDERED: hydrALAZINE HCL 20 MG/ML VIAL ONE (06:33)
[2019-05-05] MEDS: hydrALAZINE HCL 20 MG/ML VIAL IVP PRN ×2 (06:38→19:28)
--- NOTE | 2019-05-05 07:33 | Gen Surgery History & Physical ---
History of Present Illness Chief Complaint abdominal pain History of Present Illness 54 yo male with acute onset severe epigastric abdominal pain. Presented to the ER yesterday afternoon. No similar s/s. No NVD. LBM yesterday. He has known MS and ETOH abuse. No FCS, no dark urine or acholic stools. History Unable To Obtain Past Medical: Home Meds Discontinued Scripts Oxycodone Hcl (OXYCODONE HCL) 5 Mg Tablet, 5 MG PO Q6H PRN for PAIN, #12 Prov:ZACHARY GREGORY DO 03/20/19 Prednisone (PREDNISONE) 20 Mg Tablet, 40 MG PO QDAY for MS, #21 Take 2 tablets once daily for the next 2 weeks, then decrease to 1 tablet for one week Prov:ZACHARY GREGORY DO 03/20/19 Allergies: Coded Allergies: morphine (Verified Allergy, Intermediate, ITCHING, 05/04/19) Review of Systems All Systems Reviewed/Normal: Yes, Except as Noted Exam General Appearance: Alert, Awake, No Acute Distress, Afebrile Neuro: No Gross deficits Cardiovascular: Normal Rhythm & Peripheral Pulses Respiratory: No Respiratory Distress, Clear to Auscultation GI: Other (tender at the epigastrium and RUQ, abd distended and firm, no mass or hernia) Musculoskeletal: No Weakness/Pain Integumentary: Skin Intact without Lesion / Mass Psych: Alert & Oriented X3, Appropriate Mood & Affect Medical Decision Making Data Points Result Diagram: 05/05/1952605/05/19 05 EKG / Imaging Monitor Interpretation: Normal Sinus Rhythm Assessment and Plan Problems: (1) Acute cholecystitis Status: Acute Assessment & Plan: 05/05/19: Pt recommended to undergo laparoscopic, possible open, cholecystectomy with IOC. Proc, risks, benefits discussed in detail with the pt. He understands risk of bleeding, bile leak, duct injury, retained ston e, damage to viscera, need for secondary intervention, cardiopulm complication. All questions answered. Informed consent signed. (2) Multiple sclerosis Status: Chronic Assessment & Plan: Stable. States he is on no chronic medications for this. (3) ETOH abuse Status: Chronic Assessment & Plan: Monitor for s/s withdrawal. (4) Gastric mass Status: Chronic Assessment & Plan: Mass has been stable on imaging past one year. Will need EUS as an outpt and close surgical followup. Discussed at length with the pt and he verbalizes understanding. Central Venous Access Medical Necessity for Access: IV Access Critical Time Spent: 1st 30-74 Minutes, Additional 30 Minutes Venous Thromboembolism VTE Risk Physician Assess for VTE Risk: Yes Patient's VTE Risk: High VTE Diagnostic Test 2 Days Prior to Admit: No Antithrombotics Is Pt On Any Antithrombotics?: No EDGARDO HAMEED MD May 05, 2019 07:33
[2019-05-05] MEDS ORDERED: PROPOFOL EMUL(*) 10MG/ML 20 ML 20 ML ONE (08:17)
[2019-05-05] MEDS ORDERED: ONDANSETRON 4 MG/2 ML VIAL ONE (08:17)
[2019-05-05] MEDS ORDERED: LIDOCAINE MPF 1% 5 ML VIAL ONE (08:17)
[2019-05-05] MEDS ORDERED: DEXAMETHASONE SOD 4 MG/ML VIAL ONE (08:18)
[2019-05-05] MEDS ORDERED: fentaNYL CITR 250 MCG/5 ML AMP ONE (08:20)
[2019-05-05] MEDS ORDERED: SUGAMMADEX SOD 200 MG/2 ML SDV ONE (08:21)
[2019-05-05] MEDS ORDERED: NORMOSOL R SOLN(*) 1000 ML BAG 1,000 ML IV ONE (08:45)
[2019-05-05] MEDS ORDERED: PANTOPRAZOLE SOD 40 MG IV VIAL IVP SCH ×2 (09:00)
--- NOTE | 2019-05-05 09:03 | RADIOLOGY IMAGING REPORT ---
FACILITY: [facility] PATIENT NAME: Karthikeyan Li : 1965 MR: [id number] V: [id number] EXAM DATE: ORDERING PHYSICIAN: EDGARDO HAMEED TECHNOLOGIST: Location: [facility] - [place] Patient: Karthikeyan Li : 1965 Visit/Account:[id number] Date of Sevice: 05/05/2019 CHEST SINGLE AP HISTORY: Pre-op evaluation. COMPARISON: 03/20/2017. FINDINGS: Lines/tubes: None. Lungs/pleura: Negative. Heart: Negative. Mediastinum: Negative. Bony structures/body wall: Negative. IMPRESSION: No acute cardiopulmonary process. Report Dictated By: Naveed Hughes MD at 05/05/2019 8:56 AM Report E-Signed By: Naveed Hughes MD at 05/05/2019 8:57 AM [id number]
[2019-05-05] MEDS ORDERED: HYDROCORTISONE 100 MG/2 ML IVP ONE (10:55)
[2019-05-05] MEDS ORDERED: BUPIVACAIN 0.25% INJ 50ML VIAL ONE (10:58)
[2019-05-05] MEDS ORDERED: IOPAMIDOL 61% 100 ML INFUS BTL 100 ML ONE (10:58)
[2019-05-05] MEDS ORDERED: FAMOTIDINE(*) 20MG/50ML PREMIX 50 ML IVPB SCH ×2 (11:03→21:00)
[2019-05-05] MEDS ORDERED: KCL/D1/2NS 20 MEQ 1000 ML 1,000 ML IV PRN (11:03)
[2019-05-05] MEDS ORDERED: ACETAMINOPHEN 325 MG TAB PO PRN (11:05)
[2019-05-05] MEDS ORDERED: NALOXONE HCL 0.4 MG/ML VIAL IVP PRN (11:05)
[2019-05-05] MEDS ORDERED: MORPHINE 2 MG/ML SYR IVP PRN (11:05)
[2019-05-05] MEDS ORDERED: APAP/HYDROCODONE 325/5 TAB PO PRN (11:05)
[2019-05-05] MEDS ORDERED: LABETALOL HCL 100 MG/20ML VIAL ONE ×2 (12:51→13:08)
--- NOTE | 2019-05-05 12:51 | Post Operative Progress Note ---
Post Operative Progress Note Date: May 05, 2019 Time: 12:45 Surgeon: Edgardo Tyler MD Consumer Studies Professor: none Anesthesia: KEM Botello Pre-Op Diagnosis: acute cholecystitis Post-Op Diagnosis: same, gallbladder hydrops with distal CBD stone on IOC Findings: as above Procedure(s): laparoscopic cholecystectomy with IOC Specimen Removed:(May be N/A): gallbladder Complications: none Total Tourniquet Time: NA Splint: NA Fluids: 1500 ml Estimated Blood Loss: < 10 ml Medical Necessity-CL Access: IV Access Date OP Note Dictated: May 05, 2019 Time OP Note Dictated: 12:47 (Dict #[id number]) EDGARDO TYLER MD May 05, 2019 12:51
[2019-05-05] MEDS ORDERED: ACETAMINOPHEN(*)1000 MG/100 ML 100 ML IVPB ONE (13:09)
--- NOTE | 2019-05-05 13:10 | RADIOLOGY IMAGING REPORT ---
FACILITY: [facility] PATIENT NAME: Karthikeyan Li : 1965 MR: [id number] V: [id number] EXAM DATE: ORDERING PHYSICIAN: EDGARDO HAMEED TECHNOLOGIST: Location: [facility] Patient: Karthikeyan Li : 1965 Visit/Account:[id number] Date of Sevice: 05/05/2019 CHOLANGIOGRAM OPERATIVE Indication: Patient for cholecystectomy. Procedure: Fluoroscopic guidance was provided for general surgery. Fluoroscopy time: AK: 4.53 mGy Number of images: 3 images of biliary system were obtained. Findings: Contrast injected via the cystic duct remanent filled nondilated intra and extra hepatic bi le ducts. There are filling defects in the distal common bile duct. Contrast does not flow into the d uodenum. The findings are suggestive of choledocholithiasis. IMPRESSION: 1. Intraoperative cholangiogram showing obstruction due to filling defects in the distal common bile duct consistent with choledocholithiasis. Report Dictated By: Chet Melendez MD at 05/05/2019 1:04 PM Report E-Signed By: Chet Melendez MD at 05/05/2019 1:06 PM WSN:[id number]
[2019-05-05] MEDS: fentaNYL CITR 100 MCG/2 ML AMP IVP PRN ×3 (13:50→19:40)
[2019-05-05] MEDS ORDERED: fentaNYL CITR 100 MCG/2 ML AMP IVP ONE (14:00)
--- NOTE | 2019-05-05 16:28 | EKG ---
FACILITY: [facility] [place] PATIENT NAME: MARLINE ROLDAN : [id number] MR: [id number] V: [id number] EXAM DATE: ORDERING PHYSICIAN: EDGARDO HAMEED TECHNOLOGIST: Test Reason : pre-op Blood Pressure : / mmHG Vent. Rate : 069 BPM Atrial Rate : 069 BPM P-R Int : 168 ms QRS Dur : 100 ms QT Int : 446 ms P-R-T Axes : 056 092 062 degrees QTc Int : 477 ms Sinus rhythm with marked sinus arrhythmia Rightward axis Abnormal ECG Confirmed by ADARSH MARRERO ([id number]) on 05/05/2019 5:41:47 PM Referred By: Confirmed By:ADARSH MARRERO
--- NOTE | 2019-05-05 19:02 | General Surgery Progress Note ---
Subjective Progress Notes Subjective reports incisional pain, though feels better. Physical Exam Vital Signs Date Time Temp Pulse Resp B/P (MAP) Pulse Ox O2 Delivery O2 Flow Rate FiO2 05/05/19 18:31 Nasal Cannula 05/05/19 14:45 78 141/105 (117) 94 2.0 05/05/19 13:45 20 05/05/19 07:27 97.5 Intake and Output 05/05/19 07:01 Intake Total 1450 ml Balance 1450 ml Intake IV Total 1450 ml General Appearance: Alert, Awake, No Acute Distress, Afebrile Neuro: No Gross deficits Cardiovascular: Normal Rhythm & Peripheral Pulses Respiratory: No Respiratory Distress, Clear to Auscultation GI: Soft and Non-Tender, Other (dressings CDI) Musculoskeletal: No Weakness/Pain Integumentary: Skin Intact without Lesion / Mass Psych: Alert & Oriented X3, Appropriate Mood & Affect Result Diagram: 05/05/19 0527 05/05/19526 Monitor Interpretation: Normal Sinus Rhythm Assessment and Plan Problems: (1) Acute cholecystitis Status: Acute Assessment & Plan: 05/05/19: Pt recommended to undergo laparoscopic, possible open, cholecystectomy with IOC. Proc, risks, benefits discussed in detail with the pt. He understands risk of bleeding, bile leak, duct injury, retained stone, damage to viscera, need for secondary intervention, cardiopulm complication. All questions answered. Informed consent signed. 05/05/19 1830 Stable post op progress. Pt informed of distal CBD stone and need for ERCP. Will transfer to [facility], Dr Jay Clay accepting. Pt will also need EUS to eval gastric mass seen on pre-op CT scan. Pt stable for transfer. (2) Multiple sclerosis Status: Chronic Assessment & Plan: Stable. States he is on no chronic medications for this. (3) ETOH abuse Status: Chronic Assessment & Plan: Monitor for s/s withdrawal. (4) Gastric mass Status: Chronic Assessment & Plan: Mass has been stable on imaging past one year. Will need EUS as an outpt and close surgical followup. Discussed at length with the pt and he verbalizes understanding. Central Venous Access Medical Necessity for Access: IV Access Exam Sepsis Risk: No Definite Risk EDGARDO HAMEED MD May 05, 2019 19:02
--- NOTE | 2019-05-05 19:04 | Hospitalist Depart ---
Discharge Summary Reason for Hosp/Final Diag: (1) Acute cholecystitis Status: Acute Hospital Course & Plan: 05/05/19: Pt recommended to undergo laparoscopic, possible open, cholecystectomy with IOC. Proc, risks, benefits discussed in detail with the pt. He understands risk of bleeding, bile leak, duct injury, retained stone, damage to viscera, need for secondary intervention, cardiopulm complication. All questions answered. Informed consent signed. 05/05/19 1830 Stable post op progress. Pt informed of distal CBD stone and need for ERCP. Will transfer to [facility], Dr Jay Clay accepting. Pt will also need EUS to eval gastric mass seen on pre-op CT scan. Pt stable for transfer. (2) Multiple sclerosis Status: Chronic Hospital Course & Plan: Stable. States he is on no chronic medications for this. (3) ETOH abuse Status: Chronic Hospital Course & Plan: Monitor for s/s withdrawal. (4) Gastric mass Status: Chronic Hospital Course & Plan: Mass has been stable on imaging past one year. Will need EUS as an outpt and close surgical followup. Discussed at length with the pt and he verbalizes understanding. Will obtain EUS at [facility] after ERCP. Discussed with Dr Clay. Departure Weight (Pounds): 137 Result Diagram: 05/05/1952605/05/19526 Condition: Improved Discharge: Other Facility Discharge Code Status: Full Code Time Spent: > 30 min Discharge Instructions Home Meds Discontinued Scripts Oxycodone Hcl (OXYCODONE HCL) 5 Mg Tablet, 5 MG PO Q6H PRN for PAIN, #12 Prov:ZACHARY GREGORY DO 03/20/19 Prednisone (PREDNISONE) 20 Mg Tablet, 40 MG PO QDAY for MS, #21 Take 2 tablets once daily for the next 2 weeks, then decrease to 1 tablet for one week Prov:ZACHARY GREGORY DO 03/20/19 Diet: Regular Activity: As Tolerated Special Instructions: Venous Thromboembolism Antithrombotics Is Pt On Any Antithrombotics?: No EDGARDO HAMEED MD May 05, 2019 19:04
--- NOTE | 2019-05-06 01:51 | OPERATIVE REPORT 1 ---
EVENT DATE: May 05, 2019 SURGEON: Heidi Tyler MD, [facility] ANESTHESIOLOGIST: Aaron Botello MD ANESTHESIA: General. PREOPERATIVE DIAGNOSIS Acute cholecystitis. POSTOPERATIVE DIAGNOSIS Acute cholecystitis, choledocholithiasis. PROCEDURE PERFORMED Laparoscopic cholecystectomy with intraoperative cholangiogram. INDICATIONS FOR OPERATION This patient is a 54-year-old male admitted with severe right upper quadrant abdominal pain, abnormal LFTs, and hydrops on ultrasound. He is brought to the operating room at this time for cholecystectomy. FINDINGS AT THE TIME OF OPERATION The patient had a distended, edematous, acutely inflamed gallbladder. Multiple small stones were noted within his cystic duct upon opening, as well as distal common bile duct stone on intraoperative cholangiogram. DESCRIPTION OF PROCEDURE On 05/05/2019, patient was brought to the operating room and placed in the supine position. Appropriate lines and monitors were placed. He was induced and intubated under general anesthesia without difficulty. He was prepped and draped in the usual sterile manner. The pneumoperitoneum was established at the infraumbilical position using standard open technique. The skin, subcutaneous and fascial tissues were divided using sharp dissection. Under direct vision, the 10 mm Anne trocar was placed. The abdomen was insufflated without difficulty. Additional trocars were placed under direct vision, a 10 mm in the epigastrium and two 5 mm along the right costal margin. The patient was then placed in the reverse Trendelenburg position. The omental adhesions to the gallbladder were taken down using careful sharp as well as blunt dissection. The fundus was retracted over the edge of the liver. It should be noted that there was bile-stained ascites noted throughout the abdomen as well as pericholecystic fluid. Once the fundus was retracted, the cystic duct was dissected free from the triangle of Calot using careful blunt dissection. This was mobilized for a length of 1 to 2 cm. A clip was placed at the cystic duct/gallbladder junction. The cystic duct was then opened several millimeters distal and multiple small facted stones were removed. Percutaneously inserted cholangiogram catheter was then placed and inserted into the cystic duct without difficulty. Intraoperative cholangiogram was performed with fluoroscopy. There was excellent proximal filling and a persistent filling defect in the distal common bile duct, consistent with a stone. The cholangiocatheter was removed intact. The cystic duct was then clipped twice immediately beneath the opening. The cystic artery was identified immediately adjacent to the gallbladder wall, and this was clipped twice proximally and once distally and divided at this level. The gallbladder was then removed from the hepatic fossa using electrocautery. It was then placed in the Endopouch bag and sent for pathological evaluation. The operative field was hemostatic. This was irrigated copiously. The effluent was clear. The fascia at the epigastric site was closed with the Endo Close using a #1 Vicryl. All ports were removed under direct vision, and all sites were hemostatic. The pneumoperitoneum was evacuated. The fascia at the infraumbilical site was then closed with the two stay sutures of #1 Vicryl. The wounds were infiltrated with a total of 40 mL of 0.25% Marcaine without epinephrine. Skin edges were reapproximated with buried subdermal 4-0 PDS. Wounds were then dressed with Mastisol, Steri-Strips and dry sterile gauze. The patient was then extubated and taken to the recovery room in stable condition. He tolerated the operative procedure well. Estimated blood loss was less than 15 mL. Final sponge and needle counts were reported correct x2. MTDD
[2019-05-06] MEDS ORDERED: PANTOPRAZOLE SOD 40 MG IV VIAL IVP SCH (09:00)
[2019-05-06] MEDS ORDERED: ENOXAPARIN 40 MG/0.4ML SYR SC SCH (20:00)
== END 2019-05-05 18:54 | disposition short-term general hospital (02) ==
LOC: ER 19:17 → MED 23:09 → INTOOBSV 23:09
PROVIDERS: ADMIT Surgery; ATTEND Surgery
DX: K80.42 Calculus of bile duct with acute cholecystitis without obstruction (principal); G35 Multiple sclerosis; F10.10 Alcohol abuse, uncomplicated
CPT/HCPCS: 36415; 47563; 71045; 74177; 74300; 76705; 81001; 83605; 83690; 85025; 86140; 88304; 93005; 96361; 96374; 96375; 99285; C9113; G0378; G0480; J0131; J0360; J1100; J1170; J1720; J2001; J2405; J2543; J2704; J3010; J3480; J3490; J7030; J7120; Q9967; 80320; 82040; 82247; 82310; 82374; 82435; 82565; 82947; 84075; 84132; 84155; 84295; 84450; 84460; 84520

== ENCOUNTER → 2019-05-05 | Outpatient (CLI) | payer MEDICAID ==
[2019-05-05 11:06] VITALS: BMI 21.4
== END ==
LOC: AMB 19:39
PROVIDERS: ATTEND Nurse Practitioner
DX: R10.9 Unspecified abdominal pain (principal)
CPT/HCPCS: A0425; A0426